=== PATIENT | male | born 1980 | race Caucasian/White ===

== ENCOUNTER → 2020-11-26 | Outpatient (CLI) | payer BC | LOC: RAD 17:24 | DX: M23.92 Unspecified internal derangement of left knee (principal); M23.322 Other meniscus derangements, posterior horn of medial meniscus, left knee ==

== ENCOUNTER → 2023-05-09 | Outpatient (CLI) | payer BC | LOC: RAD 15:57 | DX: M79.604 Pain in right leg (principal) ==

== ENCOUNTER → 2023-07-21 | Outpatient (CLI) | payer BC | LOC: RAD 06:58 | DX: R74.8 Abnormal levels of other serum enzymes (principal) ==

== ENCOUNTER → 2024-03-11 | Outpatient (CLI) | payer BC | LOC: RAD 12:27 | DX: M25.521 Pain in right elbow (principal) ==